=== PATIENT | male | born 1985 | race Caucasian/White ===

== ENCOUNTER 2021-05-22 17:28 | Emergency (ER) | payer OTHER, SELFPAY ==
[2021-05-22 17:55] VITALS: BP 118/75; PULSE 63; RESP 18; TEMP 37; O2SAT 100
--- NOTE | 2021-05-22 18:02 | ED.MALEGU ---
HPI - Male Genitourinary General Chief complaint: Skin/Abscess/Foreign Body Stated complaint: Rash around private area Time Seen by Provider: 05/22/21 18:02 Source: patient and family Mode of arrival: ambulatory Limitations: no limitations History of Present Illness HPI Narrative: patient presents with a rash to genital area patient works out in the heat and has an itchy rash to the left groin. Patient has been applying triple antibiotic ointment to the area with no relief. Related Data Allergies Allergy/AdvReac Type Severity Reaction Status Date / Time No Known Allergies Allergy Verified 05/22/21 18:11 Review of Systems Review of Systems: CONSTITUTIONAL: Denies fever, chills, or sweats. EYES: Denies visual changes, redness, or discharge. ENT: Denies rhinorrhea, congestion, sore throat, or otalgia. CARDIOVASCULAR: Denies chest pain, palpitations, or edema. RESPIRATORY: Denies cough or dyspnea. GASTROINTESTINAL: Denies abdominal pain, nausea, vomiting, or diarrhea. GENITOURINARY: Denies dysuria or hematuria. SKIN: Denies rash or itching. MUSCULOSKELETAL: Denies back pain, joint pain, or myalgia. NEUROLOGIC: Denies headache, numbness, or weakness. PSYCHIATRIC: Denies anxiety or depression. PMFSH Comments At time of signature, agree with nursing past medical, surgical, social and family history. There is no relevant family history pertinent to the presenting complaint Exam Narrative: GENERAL: Well-appearing, well-nourished, and in no acute distress. HEAD: Normocephalic, atraumatic. EYES: PERRLA and EOMI. ENT: Nares clear, no rhinorrhea or epistaxis. Mucous membranes moist. NECK: Supple. CHEST: Clear to auscultation. No respiratory distress. HEART: Regular rate and rhythm. No murmur heard. Normal peripheral pulses. ABDOMEN: Soft, nontender, nondistended, normal active bowel sounds. EXTREMITIES: Normal range of motion. No edema. SKIN: Warm, dry, no rash. Fungal dermatitis. Consistent with jock itch to left groin NEURO: No focal deficits. Alert and oriented x3. [place] Coma Scale Eye Opening: Spontaneous 4 [place] Coma Scale Motor: Obeys Commands 6 Berta Coma Scale Verbal: Oriented 5 [place] Coma Scale Total 15 MDM - Male Genitourinary Differential Diagnosis Differential diagnosis: Likely urinary tract infection, priapism, urethritis, epididymitis, genital herpes simplex, prostatitis, acute retention of urine and inguinal hernia Critical Care Time Critical Care Time Critical Care Time: No Discharge Plan Discharge Clinical Impression: Jock itch Patient Disposition: Home, Self-Care Condition: Stable Instructions: Antibiotic Form, Jose Itch (ED) Additional Instructions: Keep area clean and dry Apply medication as prescribed Follow-up with primary care provider in 3 to 4 days as needed If any new or worsening symptoms go to ER immediately for further evaluation treatment Prescriptions: New nystatin 100,000 unit/gram powder 1 applic topical TID 5 Days Qty: 30 RF: 0 clotrimazole 1 % cream 1 applic topical BID 7 Days Qty: 28 RF: 0 Follow-up/Referrals: PHYSICIAN,BAG FILLER MACHINE OPERATOR [Primary Care Provider] -
== END 2021-05-22 18:15 | disposition home or self-care (01) ==
PROVIDERS: Emergency Provider Nurse Practitioner Family
DX: B35.6 Tinea cruris (principal)
CPT/HCPCS: 99213; G0463

== ENCOUNTER 2024-05-15 18:29 | Emergency (ER) | payer BC, SELFPAY ==
--- NOTE | 2024-05-15 18:42 | ED.SKABFB ---
HPI - Skin/Abscess/Foreign Bdy General Chief complaint: Skin/Abscess/Foreign Body Stated complaint: poison velia on privates Time Seen by Provider: 05/15/24 18:32 History of Present Illness HPI narrative: Patient presents with an itchy rash to both arms back neck and genital area. Patient states it has been there for 2-3 days and has been steadily spreading. No shortness of breath patient states he is not taking anything [id number] for his symptoms. Related Data Allergies Allergy/AdvReac Type Severity Reaction Status Date / Time No Known Allergies Allergy Verified 05/22/21 18:11 Review of Systems Review of Systems: CONSTITUTIONAL: Denies fever, chills, or sweats. EYES: Denies visual changes, redness, or discharge. ENT: Denies rhinorrhea, congestion, sore throat, or otalgia. CARDIOVASCULAR: Denies chest pain, palpitations, or edema. RESPIRATORY: Denies cough or dyspnea. GASTROINTESTINAL: Denies abdominal pain, nausea, vomiting, or diarrhea. GENITOURINARY: Denies dysuria or hematuria. SKIN: Denies rash or itching. MUSCULOSKELETAL: Denies back pain, joint pain, or myalgia. NEUROLOGIC: Denies headache, numbness, or weakness. PSYCHIATRIC: Denies anxiety or depression. PMFSH Comments At time of signature, agree with nursing past medical, surgical, social and family history. There is no relevant family history pertinent to the presenting complaint Exam Narrative: GENERAL: Well-appearing, well-nourished, and in no acute distress. HEAD: Normocephalic, atraumatic. EYES: PERRLA and EOMI. ENT: Nares clear, no rhinorrhea or epistaxis. Mucous membranes moist. NECK: Supple. CHEST: Clear to auscultation. No respiratory distress. HEART: Regular rate and rhythm. No murmur heard. Normal peripheral pulses. ABDOMEN: Soft, nontender, nondistended, normal active bowel sounds. EXTREMITIES: Normal range of motion. No edema. SKIN: Warm, dry, no rash. Rhus dermatitis RASH CONSISTENT WITH RHUS DERMATITIS. LINEAR VERMA WITH WET LIKE APPEARS ON NEW AREAS. DIFFERENT STAGES PRESENT. REDNESS TO LESIONS. NO SIGNS OF INFECTION OR CELLULITIS/ABSCESS. NO VESICLES. NO ULCERATIONS. NO RAISED URTICARIAL LESIONS. NO LESIONS ALONG THE WAISTBAND OR IN WEB SPACES. NO BURROWS. NO PETECHIAE. NEURO: No focal deficits. Alert and oriented x3. [place] Coma Scale Eye Opening: Spontaneous 4 [place] Coma Scale Motor: Obeys Commands 6 Berta Coma Scale Verbal: Oriented 5 [place] Coma Scale Total 15 Course Course Level of Care: Express Care Visit Discharge Plan Discharge Clinical Impression: Contact dermatitis, Poison velia Patient Disposition: Home, Self-Care Condition: Stable Instructions: Poison Velia (ED) Additional Instructions: Poisonivy 1. Please be aware that the oil from the plant is what causes the skin irritation, it will continue to spread as long as the oils are present. Please wash all clothing, bedding, equipment that came into contact with the plant to prevent further spreading. Animal fur can also cause spread of oils. 2. You can apply 1% Hydrocortisone cream on the rash, in smaller distributed areas, do no cover body, up to 3 times a day. This is available over the counter. 3. Cold soaks: cold compresses and soaks can be soothing to the skin. Ice cubes to the area help prevent oils from spreading. 4. Benadryl 25-50mg as needed every 6 hours over the counter to help with itching 5. Prevent scratching so that accidental skin infections do no occur. 6. If rash begins to look infected (red, warmth, fevers, increased drainage) please see PCP 7. If you develop eyelid swelling, difficulty breathing, feeling like your throat is closing, wheezing, PLEASE GO TO EMERGENCY DEPARTMENT OR CALL 911 -If you have any worsening of symptoms or any other concerns please go to the ED immediately. Prescriptions: New prednisone 20 mg tablet 40 mg PO DAILY 5 Days Qty: 10 0RF Follow-up/Referrals: PHYSICIAN,PSYCHOLOGIST [employer]AL [employer]GANIZATIONAL [Primary Care
[2024-05-15 18:43] VITALS: BP 150/67; PULSE 81; RESP 20; TEMP 36.6; O2SAT 98
[2024-05-15] MEDS: methylPREDNISolone SOD SUCC 125 MG VIAL IM (18:48)
== END 2024-05-15 19:06 | disposition home or self-care (01) ==
PROVIDERS: Emergency Provider Nurse Practitioner Family
DX: L23.7 Allergic contact dermatitis due to plants, except food (principal)
CPT/HCPCS: 96372; 99213; G0463; J2919